=== PATIENT | male | born 1955 | race Caucasian/White ===

== ENCOUNTER 2017-10-05 20:14 | Emergency (ER) | payer OTHER ==
--- OUTSIDE RECORDS SUMMARY | 2017-10-05 21:03 | XMS REPORT ---
:1955 External Reference #:[id number] Author Organization [facility] Address [address] [place] [address] Phone [phone] Care Team Providers Name Role Phone Brittany Correa MD Care Team Information [employer]ist Unavailable Brittany Correa MD Primary Care Physician Unavailable Payers Type Date Identification Numbers Payment Provider Subscriber Health Maintenance Policy Number: Jose Luis Lobo [facility] [place] [id number] [employer] Number: [id number] [id number] PayID: [id number] [place] [address] Problems Date Description Provider Status Onset: 04/25/2011 Disorder of external ear Brittany Correa M.D. Active Onset: 04/25/2011 Verruca vulgaris Brittany Correa M.D. Active Onset: 04/25/2011 Eruption Brittany Correa M.D. Active Onset: 04/25/2012 Pure hypercholesterolemia Brittany Correa M.D. Active Onset: 09/13/2012 Plantar fascial fibromatosis Mesfin Daniel M.D. Active Onset: 09/13/2012 Palpitations Mesfin Daniel M.D. Active Onset: 08/14/2013 Wrist joint pain Brittany Correa M.D. Active Onset: 08/14/2013 Ganglion of tendon sheath Brittany Correa M.D. Active Onset: 10/21/2014 Enthesopathy Brittany Correa M.D. 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 1 by Nasreen, 01/17/ mouth daily M.D. 2016 x 4 Prednisone 10/10/ Hx Tablets 20mg 11tab 2 by mouth J18.8 Maryann Torre 2016 s every day x Nasreen, 10/05/ 3 days then M.D. 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 2012 Cipro 04/25/ Hx Tablets 500 20tab 1 po bid for Brittany Flanagan 2010 - s 10days Sunny, 09/27/ M.D. 2012 Doxycycline 12/15/ Hx Tablets 100mg 42tab 1 po bid x Maryann Platt 2010 - s 21 days Nasreen, 04/25/ M.D. 2010 Azithromycin 11/11/ Hx Tablets 500mg 10tab 1 po daily x 784.2 Maryann Torre 2010 - s 10. Nasreen, 04/25/ M.D. 2011 Ventolin HFA 06/18/ Hx Aers 108(90Base 2unit take 2 Brittany Flanagan 2009 - ) mcg/ac s inhalations Breiman, 04/25/ by mouth M.D. 2010 every 4 hours if needed cough or wheezing Zithromax 06/12/ Hx Tablets 250mg 6Tabs 2 po qd Brittany Flanagan 2009 - today , then Breiman, po qd M.D. 2009 times 4 Doxycycline 12/17/ Hx Caps DR 100mg 28cap 1 po bid E906.4 Guzman Hyclate 2009 - Part s AMelinda Wasserman, 06/12/ M.D. 2009 Doxycycline 12/10/ Hx Capsules 100mg 20cap 1 po bid 788.1 Karen Hyclate 2008 - s Kim, 12/17/ Afnp-C 2008 Zithromax 05/03/ Hx Tablets 250mg 6Tabs 2 po qd Brittany Flanagan 2007 - , then Breiman, po qd M.D. 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 2012 Daily Lipitor 08/08/ Hx 10mg 20uni one qd Maurice Flanagan 2000 - ts nAnika, 12/30/ M.D. 2003 Proventil HFA 12/16/ Hx 1unit 2 puffs q4h Brittany Flanagan 1999 - s prn for Breiman, 07/28/ cough/wheeze M.D. 2009 Keflex 07/28/ Hx 5Oomg 20uni 1 PO bid La 1999 - ts Lachelle, 08/07/ Afnp-C 1999 Keflex 06/11/ Hx Tabs 5Oomg 20tab 1 PO bid Cora 1998 - s Cammie, 06/21/ REPAIRER PUMP-F 1998 Z-Pack 06/10/ Hx 1unit as Directed Karen 1998 - s Kim, 06/11/ Afnp-C 1999 Lescol 08/15/ Hx 20mg. 30uni 1 PO QHS Brittany Flanagan 1997 - eleni Correa, 05/30/ Tatyana 2002 Verrumal / Hx Use as Unknown 0000 - Directed 2011 Immunizations CPT Code Status Date Vaccine Reaction Lot # [id number] Given 04/06/2017 Influenza Vac, Quadrivalent, [id number] [address] Given 03/10/2016 Influenza Vac, Quadrivalent, [id number] [place] [address] Given 03/17/2014 DO Not Use Split Influenza [id number] Virus Vaccine 04700 Given 03/11/2013 DO Not Use Split Influenza [id number] Virus Vaccine 86318 Given 02/07/2012 DO Not Use Split Influenza no reaction noted [id number] Virus Vaccine 83906 Given 04/25/2011 DO Not Use Split Influenza [id number] Virus Vaccine 54900 Given 06/04/2009 DO Not Use Split Influenza Virus Vaccine 12807 Given 05/07/2009 H1N1 Virus Vaccine [id number] 38587 Given 05/07/2009 H1N1 Immunization Intramuscular/Intranasal W Counseling 09510 Given 05/03/2008 DO Not Use Split Influenza [id number] Virus Vaccine 50316 Given 03/17/2007 Tdap Tetanus, W Pertussis [id number] 95888 Given 03/17/2007 DO Not Use Split Influenza [id number] Virus Vaccine 06670 Given 04/08/2005 DO Not Use Split Influenza Virus Vaccine Vital Signs Date Vital Result Comment 10/05/2017 BP Systolic 136 mmHg BP Diastolic 84 mmHg Heart Rate 88 /min Body Temperature 101.7 F Respiratory Rate 16 /min Weight 186.00 lb 05/23/2017 BP Systolic 122 mmHg BP Diastolic 60 mmHg Heart Rate 64 /min Body Temperature 98.3 F Respiratory Rate 16 /min Weight 183.50 lb 01/17/2017 BP Systolic 110 mmHg BP Diastolic 80 mmHg Heart Rate 76 /min Body Temperature 98.1 F Respiratory Rate 18 /min Weight 185.00 lb 10/10/2016 BP Systolic 126 mmHg BP Diastolic 76 mmHg Heart Rate 78 /min Body Temperature 100.8 F Respiratory Rate 16 /min Height 67 inches 5'7" Weight 182.38 lb BMI (Body Mass Index) 28.6 kg/m2 05/09/2016 BP Systolic 132 mmHg BP Diastolic 80 mmHg Heart Rate 60 /min Body Temperature 97.9 F Respiratory Rate 16 /min Height 67 inches 5'7" Weight 189.00 lb BMI (Body Mass Index) 29.6 kg/m2 03/01/2016 BP Systolic 128 mmHg BP Diastolic 84 mmHg Heart Rate 60 /min Body Temperature 98.1 F Respiratory Rate 16 /min Height 67 inches 5'7" Weight 187.38 lb BMI (Body Mass Index) 29.3 kg/m2 11/05/2015 BP Systolic 126 mmHg BP Diastolic 80 mmHg Heart Rate 62 /min Body Temperature 100.0 F Respiratory Rate 18 /min Height 67 inches 5'7" Weight 184.00 lb BMI (Body Mass Index) 28.8 kg/m2 10/21/2014 BP Systolic 130 mmHg BP Diastolic 72 mmHg Heart Rate 60 /min Body Temperature 97.8 F Respiratory Rate 18 /min Height 67 inches 5'7" Weight 190.00 lb BMI (Body Mass Index) 29.8 kg/m2 06/16/2014 BP Systolic 120 mmHg BP Diastolic 80 mmHg Heart Rate 72 /min Body Temperature 98.8 F Respiratory Rate 18 /min Height 67 inches 5'7" Weight 192.00 lb BMI (Body Mass Index) 30.1 kg/m2 11/18/2013 BP Systolic 122 mmHg BP Diastolic 74 mmHg Heart Rate 62 /min Body Temperature 98.6 F Respiratory Rate 18 /min Height 67 inches 5'7" Weight 180.00 lb BMI (Body Mass Index) 28.2 kg/m2 08/14/2013 BP Systolic 120 mmHg BP Diastolic 74 mmHg Heart Rate 58 /min Body Temperature 97.2 F Respiratory Rate 18 /min Height 68 inches 5'8" Weight 182.00 lb BMI (Body Mass Index) 27.7 kg/m2 03/11/2013 BP Systolic 128 mmHg BP Diastolic 82 mmHg Heart Rate 80 /min Body Temperature 99.7 F Respiratory Rate 18 /min Height 68 inches 5'8" Weight 181.00 lb BMI (Body Mass Index) 27.5 kg/m2 09/13/2012 BP Systolic 108 mmHg BP Diastolic 74 mmHg Heart Rate 78 /min Body Temperature 97.8 F Respiratory Rate 15 /min Height 68 inches 5'8" Weight 182.00 lb BMI (Body Mass Index) 27.7 kg/m2 04/25/2012 BP Systolic 118 mmHg BP Diastolic 80 mmHg Heart Rate 60 /min Body Temperature 98.3 F Height 68 inches 5'8" Weight 185.00 lb BMI (Body Mass Index) 28.1 kg/m2 03/26/2012 BP Systolic 120 mmHg BP Diastolic 64 mmHg Heart Rate 78 /min Body Temperature 98.9 F Height 68 inches 5'8" Weight 182.00 lb BMI (Body Mass Index) 27.7 kg/m2 02/07/2012 BP Systolic 120 mmHg BP Diastolic 84 mmHg Heart Rate 88 /min Height 68 inches 5'8" Weight 179.00 lb BMI (Body Mass Index) 27.2 kg/m2 11/01/2011 BP Systolic 118 mmHg BP Diastolic 78 mmHg Heart Rate 84 /min Body Temperature 99.6 F O2 % BldC Oximetry 97 % Height 68 inches 5'8" Weight 178.00 lb BMI (Body Mass Index) 27.1 kg/m2 09/28/2011 BP Systolic 108 mmHg Left Arm BP Diastolic 62 mmHg Left Arm BP Systolic Recheck 122 mmHg Right Arm BP Diastolic Recheck 84 mmHg Right Arm Heart Rate 66 /min Height 68 inches 5'8" Weight 177.00 lb BMI (Body Mass Index) 26.9 kg/m2 04/25/2011 BP Systolic 110 mmHg BP Diastolic 70 mmHg Heart Rate 72 /min Respiratory Rate 14 /min Height 68 inches 5'8" Weight 181.00 lb BMI (Body Mass Index) 27.5 kg/m2 11/18/2010 BP Systolic 110 mmHg BP Diastolic 78 mmHg Heart Rate 88 /min Body Temperature 99.0 F Height 68 inches 5'8" Weight 178.00 lb BMI (Body Mass Index) 27.1 kg/m2 11/11/2010 BP Systolic 110 mmHg BP Diastolic 80 mmHg Heart Rate 84 /min Body Temperature 99.8 F Height 68 inches 5'8" Weight 178.00 lb BMI (Body Mass Index) 27.1 kg/m2 06/11/2010 BP Systolic 112 mmHg BP Diastolic 72 mmHg Heart Rate 68 /min Body Temperature 98.4 F Height 68 inches 5'8" Weight 183.00 lb BMI (Body Mass Index) 27.8 kg/m2 06/01/2010 BP Systolic 122 mmHg BP Diastolic 78 mmHg Heart Rate 68 /min Height 68 inches 5'8" Weight 182.00 lb BMI (Body Mass Index) 27.7 kg/m2 04/07/2010 BP Systolic 116 mmHg BP Diastolic 70 mmHg Heart Rate 72 /min Height 68 inches 5'8" Weight 180.00 lb BMI (Body Mass Index) 27.4 kg/m2 03/26/2010 BP Systolic 120 mmHg BP Diastolic 80 mmHg Heart Rate 72 /min Height 68 inches 5'8" Weight 180.00 lb BMI (Body Mass Index) 27.4 kg/m2 07/28/2009 BP Systolic 150 mmHg BP Diastolic 60 mmHg Heart Rate 72 /min Respiratory Rate 18 /min Weight 180.00 lb 06/12/2009 BP Systolic 120 mmHg BP Diastolic 80 mmHg Heart Rate 72 /min Body Temperature 98.5 F Respiratory Rate 16 /min O2 % BldC Oximetry 98 % Weight 181.00 lb 03/30/2009 BP Systolic 120 mmHg BP Diastolic 80 mmHg Heart Rate 78 /min Height 58 inches 0'5" Weight 175.00 lb BMI (Body Mass Index) 4921.0 kg/m2 12/17/2008 BP Systolic 112 mmHg BP Diastolic 80 mmHg Heart Rate 78 /min Body Temperature 99.4 F Height 69 inches 5'9" Weight 179.00 lb BMI (Body Mass Index) 26.4 kg/m2 12/10/2008 BP Systolic 114 mmHg BP Diastolic 64 mmHg Heart Rate 64 /min Body Temperature 99.1 F Height 69 inches 5'9" Weight 180.00 lb BMI (Body Mass Index) 26.6 kg/m2 09/10/2008 BP Systolic 118 mmHg BP Diastolic 82 mmHg Heart Rate 64 /min Body Temperature 101.1 F 05/27/2008 BP Systolic 100 mmHg BP Diastolic 80 mmHg Heart Rate 64 /min Body Temperature 98.8 F Height 69 inches 5'9" Weight 181.00 lb BMI (Body Mass Index) 26.7 kg/m2 05/03/2008 BP Systolic 100 mmHg BP Diastolic 70 mmHg Heart Rate 60 /min Body Temperature 98.6 F Height 69 inches 5'9" Weight 174.00 lb BMI (Body Mass Index) 25.7 kg/m2 10/30/2007 BP Systolic 108 mmHg BP Diastolic 70 mmHg Heart Rate 60 /min Height 69 inches 5'9" Weight 174.00 lb BMI (Body Mass Index) 25.7 kg/m2 07/27/2007 BP Systolic 118 mmHg BP Diastolic 70 mmHg Heart Rate 60 /min Height 69 inches 5'9" Weight 176.00 lb BMI (Body Mass Index) 26.0 kg/m2 03/21/2007 BP Systolic 120 mmHg BP Diastolic 70 mmHg Heart Rate 72 /min Body Temperature 99.1 F Respiratory Rate 16 /min Height 69 inches 5'9" Weight 168.00 lb BMI (Body Mass Index) 24.8 kg/m2 03/17/2007 BP Systolic 110 mmHg BP Diastolic 80 mmHg Heart Rate 64 /min Body Temperature 98.8 F Height 69 inches 5'9" Weight 168.00 lb BMI (Body Mass Index) 24.8 kg/m2 01/17/2007 BP Systolic 110 mmHg BP Diastolic 74 mmHg Heart Rate 68 /min Body Temperature 98.1 F Height 69 inches 5'9" Weight 163.00 lb BMI (Body Mass Index) 24.1 kg/m2 05/27/2006 BP Systolic 120 mmHg BP Diastolic 78 mmHg Body Temperature 99.0 F Height 69 inches 5'9" 09/06/2005 BP Systolic 112 mmHg BP Diastolic 70 mmHg Heart Rate 60 /min Height 69 inches 5'9" Weight 182.00 lb BMI (Body Mass Index) 26.9 kg/m2 12/31/2003 BP Systolic 124 mmHg BP Diastolic 74 mmHg Heart Rate 60 /min Height 69 inches 5'9" Weight 169.00 lb BMI (Body Mass Index) 25.0 kg/m2 03/08/2003 BP Systolic 100 mmHg BP Diastolic 70 mmHg Heart Rate 68 /min Body Temperature 97.4 F Height 69 inches 5'9" Weight 174.00 lb BMI (Body Mass Index) 25.7 kg/m2 05/30/2002 BP Systolic 100 mmHg BP Diastolic 70 mmHg Heart Rate 68 /min Height 69 inches 5'9" Weight 170.00 lb BMI (Body Mass Index) 25.1 kg/m2 12/21/1999 BP Systolic 120 mmHg BP Diastolic 74 mmHg Heart Rate 84 /min Height 69 inches 5'9" Weight 174.00 lb BMI (Body Mass Index) 25.7 kg/m2 07/24/1999 Body Temperature 98.9 F Weight 168.00 lb 01/30/1999 Body Temperature 99.0 F 12/04/1998 BP Systolic 112 mmHg BP Diastolic 80 mmHg Weight 170.00 lb 06/08/1998 Body Temperature 99.3 F Weight 173.00 lb 04/20/1998 BP Systolic 108 mmHg BP Diastolic 70 mmHg Body Temperature 97.3 F Weight 166.00 lb 08/15/1997 BP Systolic 122 mmHg BP Diastolic 80 mmHg Height 69 inches 5'9" Weight 161.50 lb Results Test Date Test Result H/L Range Note Laboratory test finding 05/09/2016 HCV Antibody 0.2 s/coratio 0.0-0.9 1 , 2 Comprehensive Metabolic Prof 05/09/2016 Sodium 142 mEq/L 134-149 Potassium 4.3 mEq/L 3.6-5.5 Chloride 102 mEq/L 94-112 Carbon Dioxide 26 mEq/L 21-32 Glucose 89 mg/dL 70-105 BUN 16 mg/dL 6-26 Creatinine 0.9 mg/dL 0.6-1.4 BUN/Creat Ratio 17.8 CALC 8.0-36.0 Calcium 9.3 mg/dL 8.6-10.2 Total Protein 7.0 g/dL 6.4-8.3 Albumin 4.2 g/dL 3.8-5.5 Globulin 2.8 g/dL 2.0-4.8 A/G Ratio 1.5 CALC 0.6-2.3 Alk. Phosphatase 70 U/L 22-95 Alt (SGPT) 22 U/L 7-35 Ast (Sgot) 23 U/L 5-34 Total Bilirubin 0.8 mg/dL 0.2-1.3 GFR Non- >60 ml/min/1.73m^ >=60 GFR >60 ml/min/1.73m^ >=60 Lipid Profile 05/09/2016 Cholesterol 209 mg/dL High 120-200 Triglycerides 111 mg/dL 30-200 HDL Cholesterol 47 mg/dL 30-70 LDL (Calculated) 140 CALC High 0-129 VLDL Cholesterol 22 mg/dL 0-50 HDL Risk Factor 4.4 CALC 0.0-4.4 Complete Blood Count 05/09/2016 WBC 5.8 x10^3/UL 3.6-9.6 RBC 4.87 x10^6/UL 3.90-5.70 HGB 14.8 g/dL 12.1-17.2 HCT 44 % 36-50 MCV 90.0 fL 82.2-97.4 MCH 30.4 pg 27.6-33.3 MCHC 33.9 g/dL 33.0-35.5 RDW 14.7 % High 11.6-13.7 PLT 320 x10^3/UL 150-400 MPV 7.0 fL Low 7.4-10.4 Gran # 3.7 x10^3/UL 1.5-7.2 Lymph# 1.9 x10^3/UL 0.7-4.9 Mccormick# 0.2 x10^3/UL 0.1-0.9 Gran % 61.7 % 42.2-75.2 Lymph % 33.4 % 20.5-51.1 Mccormick% 4.9 % 1.7-9.3 Laboratory test finding 05/09/2016 PSA 1.9 ng/mL 0.0-4.0 Ua - Non Micro (Fma) 05/09/2016 Appearance clear Color yellow Glucose, Urine (Fma/CMC/CTX) neg Bilirubin neg Ketones neg SP Grav 1.025 Blood neg PH 5.5 Protein neg Urobil 0.2 Nitrite neg Leukocytes (Fma/CMC/Centrex) neg Laboratory test finding 03/01/2016 Quickstrep negative Negative Laboratory test finding 11/05/2015 Quickstrep neg Negative Istat BUN/Crea/Egfr/V Eastct 11/05/2015 Poc Bun Eastct 17 mg/dL 9-18 Poc Crea Eastct 1.0 mg/dL High 0.6-0.9 GFR Non- Ect 76.7 >60 GFR Eastct 98.7 >60 3 CBC Electronic-ALL Lab 11/05/2015 White Blood Count 11.5 10^3/uL High 3.5- 10.8 Compani Red Blood Count 5.00 10^6/uL 4.0-5.4 Hemoglobin 14.5 g/dL 14.0-18.0 Hematocrit 44 % 42-52 Mean Corpuscular Volume 88 fL 80-94 Mean Corpuscular Hemoglobin 29 pg 27-31 Mean Corpuscular HGB Conc 33 g/dL 31-36 Red Cell Distribution Width 13 % 10.5-15 Platelet Count 267 10^3/uL 150-450 Mean Platelet Volume 9 um3 7.4-10.4 Abs Neutrophils 8.4 10^3/uL High 1.5-7.7 Abs Lymphocytes 1.9 10^3/uL 1.0-4.8 Abs Monocytes 0.9 10^3/uL High 0-0.8 Abs Eosinophils 0.2 10^3/uL 0-0.6 Abs Basophils 0.1 10^3/uL 0-0.2 Abs Nucleated RBC 0.02 10^3/uL Granulocyte % 72.8 % 38-83 Lymphocyte % 16.9 % Low 25-47 Monocyte % 7.6 % 1-9 Eosinophil % 2.2 % 0-6 Basophil % 0.5 % 0-2 Nucleated Red Blood Cells % 0.1 Laboratory test finding 11/05/2015 Blood Culture SEE RESULT BELOW 4 Monospot Negative Negative Comp Metabolic-ALL Lab Compani 11/05/2015 Sodium 137 mmol/L 133-145 Potassium 4.4 mmol/L 3.5-5.0 Chloride 101 mmol/L 101-111 Co2 Carbon Dioxide 27 mmol/L 22-32 Anion Gap 9 mmol/L 2-11 Glucose 82 mg/dL 70-100 Blood Urea Nitrogen 16 mg/dL 6-24 Creatinine 1.00 mg/dL 0.67-1.17 BUN/Creatinine Ratio 16.0 8-20 Calcium 9.4 mg/dL 8.6-10.3 Total Protein 7.4 g/dL 6.4-8.9 Albumin 4.3 g/dL 3.2-5.2 Globulin 3.1 g/dL 2-4 Albumin/Globulin Ratio 1.4 1-3 Total Bilirubin 0.70 mg/dL 0.2-1.0 Alkaline Phosphatase 69 U/L 34-104 Alt 14 U/L 7-52 Ast 19 U/L 13-39 Egfr Non- 76.7 >60 Egfr 98.7 >60 5 Laboratory test finding 06/16/2014 Quickstrep negative Negative Throat - Beta Strep Fma NEG@48HRS CBC Electronic (Fma) 11/18/2013 WBC 5.7 3.6-9.6 RBC 5.07 3.90-5.70 Hemoglobin (Fma/CMC/CTX) 15.4 g/dL 12.1 - 17.2 Hematocrit (Fma/CMC/CTX) 46.5 % 36.1 - 50.3 Platelets 232 10^3/ul 150-400 Lymph% 40.3 % 17.0-48.0 Mixed% 4.1 Neutrophils % 55.6 Mean Corpuscular Vol 92 82.2-97.4 Mean Corpuscular Hemoglobin 30.3 27.6-33.3 Mean Corpuscular Hemo Concen 33.1 32.0-36.0 RDW 13.4 11.6-13.7 Mean Platelet Volume 7.2 5.5-11.0 Ua - Non Micro (a) 11/18/2013 Appearance CLEAR Color YELLOW Glucose, Urine (Fma/CMC/CTX) NEG Bilirubin NEG Ketones NEG SP Grav 1.025 Blood NEG PH 6.5 Protein NEG Urobil 0.2 Nitrite NEG Leukocytes (Fma/CMC/Centrex) NEG Comprehensive Metabolic Prof 11/18/2013 Sodium 148 mEq/L 134-149 Potassium 4.5 mEq/L 3.6-5.5 Chloride 104 mEq/L 94-112 Carbon Dioxide 23 mEq/L 21-32 Glucose 86 mg/dL 70-105 BUN 18 mg/dL 6-26 Creatinine 1.2 mg/dL 0.6-1.4 BUN/Creat Ratio 15.0 CALC 8.0-36.0 Calcium 9.8 mg/dL 8.6-10.2 Total Protein 7.9 g/dL 6.3-8.1 Albumin 4.6 g/dL 3.8-5.5 Globulin 3.3 g/dL 2.0-4.8 A/G Ratio 1.4 CALC 0.6-2.3 Alk. Phosphatase 72 U/L 22-95 Alt (SGPT) 22 U/L 7-35 Ast (Sgot) 13 U/L 5-34 Total Bilirubin 0.8 mg/dL 0.2-1.3 Laboratory test finding 11/18/2013 PSA 1.8 ng/mL 0.0-4.0 6 Lipid Profile 11/18/2013 Cholesterol 205 mg/dL High 120-200 Triglycerides 114 mg/dL 30-200 HDL Cholesterol 42 mg/dL 30-70 LDL (Calculated) 140 CALC High 0-129 VLDL Cholesterol 23 mg/dL 0-50 HDL Risk Factor 4.9 CALC High 0.0-4.4 CBC Electronic (a) 04/25/2012 WBC 6.0 3.6-9.6 RBC 4.92 3.90-5.70 Hemoglobin (Fma/CMC/CTX) 15.2 g/dL 12.1 - 17.2 Hematocrit (Fma/CMC/CTX) 45.5 % 36.1 - 50.3 Platelets 243 10^3/ul 150-400 Lymph% 38.6 20.5-51.1 Mixed% 5.8 Neutrophils % 55.6 Mean Corpuscular Vol 93 82.2-97.4 Mean Corpuscular Hemoglobin 30.9 27.6-33.3 Mean Corpuscular Hemo Concen 33.3 32.0-36.0 RDW 14.1 High 11.6-13.7 Mean Platelet Volume 7.6 6.5-11.0 Ua - Non Micro (Fma) 04/25/2012 Appearance CLEAR Color YELLOW Glucose, Urine (Fma/CMC/CTX) NEG Bilirubin NEG Ketones NEG SP Grav 1.025 Blood NEG PH 6.5 Protein NEG Urobil 0.2 Nitrite NEG Leukocytes (Fma/CMC/Centrex) NEG Comprehensive Metabolic Prof 04/25/2012 Albumin 4.7 g/dL 3.8-5.5 Alk. Phos. 73 U/L 22-95 Alt (SGPT) 30 U/L 10-40 Ast (Sgot) 29 U/L 5-34 BUN 19 mg/dL 6-26 Calcium 9.3 mg/dL 8.6-10.2 Chloride 104 mEq/L 94-112 Creatinine 1.0 mg/dL 0.6-1.4 Carbon Dioxide 27 mEq/L 21-32 Glucose 88 mg/dL 70-105 Sodium 140 mEq/L 134-149 Total Bilirubin 0.7 mg/dL 0.2-1.3 Total Protein 7.0 g/dL 6.3-8.1 Potassium 4.2 mEq/L 3.6-5.5 Globulin 2.3 g/dL 2.0-4.8 A/G Ratio 2.0 Calc 0.6-2.2 BUN/Creat Ratio 18.3 Calc 8.0-36.0 Laboratory test finding 04/25/2012 PSA 2.10 ng/mL 0.00-4.00 Lipid Profile 04/25/2012 Cholesterol 215 mg/dL High 120-200 HDL 48 mg/dL 30-70 Triglycerides 126 mg/dL 30-200 HDL Risk Factor 4.4 CALC 0.0-4.4 LDL (Calculated) 142 CALC High 0-129 VLDL (Calculated) 25 mg/dL 0-50 Laboratory test finding 03/26/2012 Throat - Beta Strep Fma NEG@48HRS CBC Electronic (Fma) 11/18/2010 WBC 8.5 3.6-9.6 RBC 4.95 3.90-5.70 Hemoglobin (Fma/CMC/CTX) 15.0 g/dL 12.1 - 17.2 Hematocrit (Fma/CMC/CTX) 44.3 % 36.1 - 50.3 Platelets 301 10^3/ul 150-400 Lymph% 19.8 Low 20.5-51.1 Mixed% 6.0 Neutrophils % 74.2 Mean Corpuscular Vol 89 82.2-97.4 Mean Corpuscular Hemoglobin 30.3 27.6-33.3 Mean Corpuscular Hemo Concen 33.9 32.0-36.0 RDW 12.0 11.6-13.7 Mean Platelet Volume 7.3 6.5-11.0 Lyme Western Blot Ser 11/18/2010 IgG P93 Ab. Absent IgG P66 Ab. Absent IgG P58 Ab. Absent IgG P45 Ab. Absent IgG P41 Ab. Absent IgG P39 Ab. Absent IgG P30 Ab. Absent IgG P28 Ab. Absent IgG P23 Ab. Absent IgG P18 Ab. Absent Lyme IgG WB Interp. Negative 7 IgM P41 Ab. Absent IgM P39 Ab. Absent IgM P23 Ab. Absent Lyme IgM WB Interp. Negative 8 HSV Igm I/II 11/18/2010 HSV, IgM I/II <0.91 Ratio 0.00-0.90 9 Combination Combination Laboratory test 11/18/2010 Herpes Culture With No herpes simple 10 finding Typing <SEE NOTE> Throat Culture Normal pharyngea <SEE NOTE> 11 Lyme Igg/M W/RFX West 11/18/2010 Lyme IgG/IgM Ab 1.11 index High 0.00- 0.90 12 Lyme Ab Interp.,Eia Positive Lyme Disease Ab, Quant, IgM 1.29 index High 0.00-0.90 13 Lyme Ab IgM Interp., Eia Positive HSV 1+2-Specific AB, Igg. 11/18/2010 HSV 1 IgG, Type <0.91 index 0.00- 0.90 14 Spec HSV 2 IgG, Type Spec <0.91 index 0.00-0.90 15 Comprehensive Metabolic Prof 11/11/2010 Albumin 4.7 g/dL 3.8-5.5 Alk. Phos. 83 U/L 22-95 Alt (SGPT) 20 U/L 10-40 Ast (Sgot) 23 U/L 5-34 BUN 20 mg/dL 6-26 Calcium 10.0 mg/dL 8.6-10.2 Chloride 100 mEq/L 94-112 Creatinine 1.0 mg/dL 0.6-1.4 Carbon Dioxide 26 mEq/L 21-32 Glucose 100 mg/dL 70-105 Sodium 140 mEq/L 134-149 Total Bilirubin 0.9 mg/dL 0.2-1.3 Total Protein 7.0 g/dL 6.3-8.1 Potassium 4.6 mEq/L 3.6-5.5 Globulin 2.2 g/dL 2.0-4.8 A/G Ratio 2.1 Calc 0.6-2.2 BUN/Creat Ratio 19.6 Calc 8.0-36.0 CBC Electronic (a) 11/11/2010 WBC 8.3 3.6-9.6 RBC 5.08 3.90-5.70 Hemoglobin (Fma/CMC/CTX) 15.2 g/dL 12.1 - 17.2 Hematocrit (Fma/CMC/CTX) 45.6 % 36.1 - 50.3 Platelets 247 10^3/ul 150-400 Lymph% 16.6 Low 20.5-51.1 Mixed% 4.8 Neutrophils % 78.6 Mean Corpuscular Vol 90 82.2-97.4 Mean Corpuscular Hemoglobin 30.0 27.6-33.3 Mean Corpuscular Hemo Concen 33.4 32.0-36.0 RDW 12.7 11.6-13.7 Mean Platelet Volume 7.8 6.5-11.0 Lipid Profile 08/03/2010 Cholesterol 205 mg/dL High 120-200 HDL 44 mg/dL 30-70 Triglycerides 147 mg/dL 30-200 HDL Risk Factor 4.7 CALC High 0.0-4.0 LDL (Calculated) 132 CALC High 0-129 VLDL (Calculated) 29 mg/dL 0-50 Laboratory test finding 06/11/2010 Quickstrep NEGATIVE Negative Throat - Beta Strep Fma NEGATIVE Negative Ua - Non Micro ([facility]) 06/01/2010 Appearance CLEAR Color YELLOW Glucose NEG Bilirubin NEG Ketones NEG SP Grav 1.025 Blood NEG PH 6.5 Protein NEG Urobil 0.2 Nitrite NEG Leukocytes (Fma/CMC/Centrex) NEG Comprehensive Metabolic Prof 04/09/2010 Albumin 4.4 g/dL 3.8-5.5 Alk. Phos. 67 U/L 22-95 Alt (SGPT) 28 U/L 10-40 Ast (Sgot) 25 U/L 5-34 BUN 20 mg/dL 6-26 Calcium 9.3 mg/dL 8.6-10.2 Chloride 106 mEq/L 94-112 Creatinine 1.0 mg/dL 0.6-1.4 Carbon Dioxide 25 mEq/L 21-32 Glucose 100 mg/dL 70-105 Sodium 144 mEq/L 134-149 Total Bilirubin 0.6 mg/dL 0.2-1.3 Total Protein 7.3 g/dL 6.3-8.1 Potassium 4.4 mEq/L 3.6-5.5 Globulin 2.9 g/dL 2.0-4.8 A/G Ratio 1.5 Calc 0.6-2.2 BUN/Creat Ratio 20.4 Calc 8.0-36.0 Lipid Profile 04/09/2010 Cholesterol 218 mg/dL High 120-200 HDL 49 mg/dL 30-70 Triglycerides 102 mg/dL 30-200 HDL Risk Factor 4.5 CALC 4.2-7.0 LDL (Calculated) 149 CALC High 0-129 VLDL (Calculated) 20 mg/dL 0-50 Laboratory test finding 04/09/2010 PSA 1.80 ng/mL 0.00-4.00 CBC ([facility]ma) 04/09/2010 WBC 5.4 3.6-9.6 RBC 5.08 3.90-5.70 Hemoglobin ([facility]ma/CMC/CTX) 15.5 g/dL 12.1 - 17.2 Hematocrit ([facility]ma/CMC/CTX) 46.5 % 36.1 - 50.3 Platelets 268 10^3/ul 150-400 Lymph% 33.1 20.5-51.1 Mixed% 5.5 Neutrophils % 61.4 Mean Corpuscular Vol 92 82.2-97.4 Mean Corpuscular Hemoglobin 30.5 27.6-33.3 Mean Corpuscular Hemo Concen 33.3 33.0-36.0 RDW 11.8 11.6-13.7 Mean Platelet Volume 7.9 7.4-10.4 Laboratory test finding 03/26/2010 Surgical Pathology SEE NOTE 16 Complete Blood Count 03/30/2009 WBC 5.6 x10^3/uL 3.6-9.6 17 Gran# 3.5 x10^3/uL 1.5-7.2 17 Gran% 63.1 % 42.2-75.2 17 HCT 45 % 36-50 17 HGB 15.3 g/dL 12.1-17.2 17 Lymph# 1.8 x10^3/uL 0.7-4.9 17 Lymph% 32.7 % 20.5-51.1 17 MCH 31.0 pg 27.6-33.3 17 MCV 89.9 fL 82.2-97.4 17 MCHC 34.5 g/dL 33.0-35.5 17 Mo# 0.2 x10^3/uL 0.1-0.9 17 Mo% 4.2 % 1.7-9.3 17 MPV 8.2 fL 7.4-10.4 17 PLT 230 x10^3/uL 150-400 17 RBC 4.95 x10^6/uL 3.90-5.70 17 RDW 12.8 % 11.6-13.7 17 Laboratory test finding 03/30/2009 PSA 1.70 ng/mL 0.00-4.00 17 Ua - Non Micro (a) 03/30/2009 Appearance CLEAR Color YELLOW Glucose, Urine (a/[facility]CTX) NEG Bilirubin NEG Ketones NEG SP Grav 1.015 Blood NEG PH 8.5 Protein NEG Urobil 0.2 Nitrite NEG Leukocytes (a/[facility]) NEG Comprehensive Metabolic Prof 03/30/2009 Albumin 4.5 g/dL 3.8-5.5 17 Alk. Phos. 68 U/L 22-95 17 Alt (SGPT) 31 U/L 10-40 17 Ast (Sgot) 31 U/L 5-34 17 BUN 16 mg/dL 6-26 17 Calcium 9.5 mg/dL 8.6-10.2 17 Chloride 104 mEq/L 94-112 17 Creatinine 1.1 mg/dL 0.6-1.4 17 Carbon Dioxide 24 mEq/L 21-32 17 Glucose 84 mg/dL 70-105 17 Sodium 142 mEq/L 134-149 17 Total Bilirubin 0.7 mg/dL 0.2-1.3 17 Total Protein 7.2 g/dL 6.3-8.1 17 Potassium 4.3 mEq/L 3.6-5.5 17 Globulin 2.8 g/dL 2.0-4.8 17 A/G Ratio 1.6 Calc 0.6-2.2 17 BUN/Creat Ratio 14.2 Calc 8.0-36.0 17 Lipid Profile 03/30/2009 Cholesterol 189 mg/dL 120-200 17 HDL 38 mg/dL 30-70 17 Triglycerides 120 mg/dL 30-200 17 HDL Risk Factor 4.9 CALC 4.2-7.0 17 LDL (Calculated) 127 CALC 0-129 17 VLDL (Calculated) 24 mg/dL 0-50 17 Ua - Micro ([facility]ma) 12/10/2008 Appearance clear Color yellow Glucose neg Bilirubin neg Ketones trace SP Grav 1.025 Blood neg PH 6.0 Protein neg Urobil 0.2 Nitrite neg Leukocytes ([facility]) neg Hyaline - /Lpf Granular - /Lpf WBC ([facility]) 1-3 RBC 0-1 Mucus small amt /Lpf Epith rare /Lpf Bacteria rare /Hpf Amorphous - /Lpf Crystals, Fluid ([facility]/CTX) - Z#Comments - Laboratory test finding 05/27/2008 PSA 1.80 ng/mL 0.00-4.00 17 Comprehensive Metabolic Prof 05/27/2008 Albumin 4.0 g/dL 3.8-5.5 17 Alk. Phos. 62 U/L 22-95 17 Alt (SGPT) 27 U/L 10-40 17 Ast (Sgot) 33 U/L 5-34 17 BUN 19 mg/dL 6-26 17 Calcium 9.2 mg/dL 8.6-10.2 17 Chloride 100 mEq/L 94-112 17 Creatinine 1.0 mg/dL 0.6-1.4 17 Carbon Dioxide 24 mEq/L 21-32 17 Glucose 85 mg/dL 70-105 17 Sodium 138 mEq/L 134-149 17 Total Bilirubin 0.7 mg/dL 0.2-1.3 17 Total Protein 7.0 g/dL 6.3-8.1 17 Potassium 4.1 mEq/L 3.6-5.5 17 Globulin 3.0 g/dL 2.0-4.8 17 A/G Ratio 1.4 Calc 0.6-2.2 17 BUN/Creat Ratio 18.2 Calc 8.0-36.0 17 Lipid Profile 05/27/2008 Cholesterol 232 mg/dL High 120-200 17 HDL 39 mg/dL 30-70 17 Triglycerides 114 mg/dL 30-200 17 HDL Risk Factor 6.0 CALC 4.2-7.0 17 LDL (Calculated) 170 CALC High 0-129 17 VLDL (Calculated) 23 mg/dL 0-50 17 Ua - Non Micro ([facility]) 07/27/2007 Appearance CLEAR Color LT YELLOW Glucose, Urine ([facility]CTX) NEG Bilirubin NEG Ketones NEG SP Grav 1.025 Blood NEG PH 5.0 Protein NEG Urobil 0.2 Nitrite NEG Leukocytes ([facility]) NEG Comprehensive Metabolic Prof 07/19/2007 Albumin 4.3 g/dL 3.8-5.5 17 Alk. Phos. 54 U/L 22-95 17 Alt (SGPT) 20 U/L 10-40 17 Ast (Sgot) 23 U/L 5-34 17 BUN 21 mg/dL 6-26 17 Calcium 9.5 mg/dL 8.6-10.2 17 Chloride 101 mEq/L 94-112 17 Creatinine 1.3 mg/dL 0.6-1.4 17 Carbon Dioxide 26 mEq/L 21-32 17 Glucose 89 mg/dL 70-105 17 Sodium 140 mEq/L 134-149 17 Total Bilirubin 0.8 mg/dL 0.2-1.3 17 Total Protein 7.2 g/dL 6.3-8.1 17 Potassium 4.2 mEq/L 3.6-5.5 17 Globulin 2.9 g/dL 2.0-4.8 17 A/G Ratio 1.5 Calc 0.6-2.2 17 BUN/Creat Ratio 15.8 Calc 8.0-36.0 17 Lipid Profile 07/19/2007 Cholesterol 198 mg/dL 120-200 17 HDL 47 mg/dL 30-70 17 Triglycerides 86 mg/dL 30-200 17 HDL Risk Factor 4.2 CALC 4.2-7.0 17 LDL (Calculated) 134 CALC High 0-129 17 VLDL (Calculated) 17 mg/dL 0-50 17 Complete Blood Count 07/19/2007 WBC 4.8 x10^3/u 3.6-9.6 17 Gran# 2.7 x10^3/u 1.5-7.2 17 Gran% 56.5 % 42.2-75.2 17 HCT 46 % 36-50 17 HGB 16.1 g/dL 12.1-17.2 17 Lymph# 1.7 x10^3/u 0.7-4.9 17 Lymph% 36.2 % 20.5-51.1 17 MCH 31.8 pg 27.6-33.3 17 MCV 92.0 fL 82.2-97.4 17 MCHC 34.6 g/dL 33.0-35.5 17 Mo# 0.4 x10^3/u 0.1-0.9 17 Mo% 7.3 % 1.7-9.3 17 MPV 7.7 fL 7.4-10.4 17 PLT 256 x10^3/u 150-400 17 RBC 5.05 x10^6/u 3.90-5.70 17 RDW 12.8 % 11.6-13.7 17 Laboratory test finding 03/17/2007 Throat - Beta Strep [facility] NEGATIVE @ 48 HRS Ua - Non Micro ([facility]) 01/17/2007 Appearance CLEAR Color LT YELLOW Glucose, Urine (a/[facility]CTX) NEG Bilirubin NEG Ketones NEG SP Grav 1.015 Blood NEG PH 7.0 Protein NEG Urobil 0.2 Nitrite NEG Leukocytes (a/[facility]) NEG Complete Blood Count 01/17/2007 WBC 5.1 x10\\S\\3/uL 3.6-9.6 17 Gran# 3.2 x10\\S\\3/uL 1.5-7.2 17 Gran% 61.9 % 42.2-75.2 17 HCT 44 % 36-50 17 HGB 15.0 g/dL 12.1-17.2 17 Lymph# 1.6 x10\\S\\3/uL 0.7-4.9 17 Lymph% 32.0 % 20.5-51.1 17 MCH 31.9 pg 27.6-33.3 17 MCV 93.8 fL 82.2-97.4 17 MCHC 34.1 g/dL 33.0-35.5 17 Mo# 0.3 x10\\S\\3/uL 0.1-0.9 17 Mo% 6.1 % 1.7-9.3 17 MPV 7.9 fL 7.4-10.4 17 PLT 262 x10\\S\\3/uL 150-400 17 RBC 4.71 x10\\S\\6/uL 3.90-5.70 17 RDW 13.0 % 11.6-13.7 17 Comprehensive Metabolic Prof 01/17/2007 Albumin 4.1 g/dL 3.8-5.5 17 Alk. Phos. 68 U/L 22-95 17 Alt (SGPT) 19 U/L 10-40 17 Ast (Sgot) 21 U/L 5-34 17 BUN 19 mg/dL 6-26 17 Calcium 9.1 mg/dL 8.6-10.2 17 Chloride 100 mEq/L 94-112 17 Creatinine 0.9 mg/dL 0.6-1.4 17 Carbon Dioxide 31 mEq/L 21-32 17 Glucose 83 mg/dL 70-105 17 Sodium 141 mEq/L 134-149 17 Total Bilirubin 0.6 mg/dL 0.2-1.3 17 Total Protein 6.7 g/dL 6.3-8.1 17 Potassium 3.7 mEq/L 3.6-5.5 17 Globulin 2.6 g/dL 2.0-4.8 17 A/G Ratio 1.6 Calc 0.6-2.2 17 BUN/Creat Ratio 20.6 Calc 8.0-36.0 17 Lipid Profile 01/17/2007 Cholesterol 170 mg/dL 120-200 17 HDL 55 mg/dL 30-70 17 Triglycerides 70 mg/dL 30-200 17 HDL Risk Factor 3.1 CALC Low 4.2-7.0 17 LDL (Calculated) 101 CALC 0-129 17 VLDL (Calculated) 14 mg/dL 0-50 17 Laboratory test finding 01/17/2007 PSA 2.20 ng/mL 0.00-4.00 17 Liver Function Panel 07/04/2006 Albumin/Globulin Ratio 1.4 1-3 17 Albumin 4.1 GM/DL 3.6-5.4 17 Alkaline Phosphatase 62 U/L 39-117 17 Alt (SGPT) 26 U/L 17-63 17 Ast (Sgot) 28 U/L 12-42 17 Bilirubin Direct 0.1 mg/dL 0.1-0.5 17 Globulin 2.9 GM/DL 2-4 17 Indirect Bilirubin 1.0 mg/dL High 0.1-0.75 17 Bilirubin Total 1.1 mg/dL 0.4-1.5 17 Total Protein 7.0 GM/DL 6.2-8.1 17 Lipid Profile 07/04/2006 Cholesterol/HDL Ratio 4.80 AVERAGE 1-4.97 17 (Trig/Chol/HDL) Cholesterol 192 mg/dL Less Than 200 17, 18 Triglyceride 90 mg/dL 40-200 17 High Density Lipoprotein 40 mg/dL 40-60 17 Low Density Lipoprotein 134 mg/dL High Less Than 100 17, 19 Liver Function (a) 09/10/2005 Total Protein 7.3 g/dL 6.3-8.1 Albumin ([facility]) 4.3 3.8-5.5 A/G Ratio ([facility]) 1.4 0.6-2.2 Globulin 3.1 2.0-4.8 Alkaline Phosphatase (F/C/CTX) 60 U/L 30-110 Alt (SGPT) ([facility]) 22 10-40 Ast (Sgot) ([facility]) 22 U/mL 5-34 Bilirubin, Total 0.8 mg/dL 0.2-1.3 Bilirubin, Direct 0.2 mg/dL 0-0.6 Bilirubin, Indirect 0.59 ml/dl 0.10-1.0 Lipid Profile([facility]) 09/10/2005 Cholesterol 211 mg/dL High 120-200 Male ([facility]) Triglyceride 83 mg/dL 30-200 HDL Cholesterol ([facility]) Male 35 mg/dL 30-70 LDL, Calculated ([facility]) 158 CALC High 0-129 LDL Direct ([facility]) - mg/dL 0-130 VLDL 17 0-50 HDL Risk Factor ([facility]) 5.9 CALC 4.2-7.0 Laboratory test finding 09/10/2005 Creatine Kin, Total 225 U/L High 38- 174 20 (F/C/CTX) Liver Function ([facility]) 08/17/2004 Total Protein 7.1 g/dL 6.3-8.1 Albumin ([facility]) 4.4 3.8-5.5 A/G Ratio ([facility]) 1.6 0.6-2.2 Globulin 2.7 2.0-4.8 Alkaline Phosphatase (F/C/CTX) 60 U/L 30-110 Alt (SGPT) ([facility]) 21 10-40 Ast (Sgot) ([facility]) 25 U/mL 5-34 Bilirubin, Total 0.8 mg/dL 0.2-1.3 Bilirubin, Direct 0.2 mg/dL 0-0.6 Bilirubin, Indirect 0.55 ml/dl 0.10-1.0 Lipid Profile([facility]) Male 08/17/2004 Cholesterol 189 mg/dL 120-200 Triglyceride 92 mg/dL 30-200 HDL Cholesterol ([facility]) Male 44 mg/dL 30-70 LDL, Calculated ([facility]) 127 CALC 0-129 LDL, Direct - mg/dL 0-130 VLDL 18 0-50 HDL Risk Factor ([facility]) 4.3 CALC 4.2-7.0 Liver Function ([facility]) 12/31/2003 Total Protein 7.3 g/dL 6.3-8.1 Albumin ([facility]) 4.3 3.8-5.5 A/G Ratio ([facility]) 1.4 0.6-2.2 Globulin 3.0 2.0-4.8 Alkaline Phosphatase (F/C/CTX) 70 U/L 30-110 Alt (SGPT) 22 10-40 Ast (Sgot) ([facility]) 26 U/mL 5-34 Bilirubin, Total 0.8 mg/dL 0.2-1.3 Bilirubin, Direct 0.2 mg/dL 0-0.6 Bilirubin, Indirect 0.58 ml/dl 0.10-1.0 Comp Metabolic ([facility]) 12/22/1999 Albumin 4.2 GM/DL 3.80 - 5.50 Alkaline Phosphatase 90 U/L 39-130 Bilirubin, Total 0.9 mg/dL 0.2-1.3 BUN 16 mg/dL 10-26 Calcium 8.9 mg/dL 7.4-9.2 Creatinine 1.1 mg/dL 0.6-1.4 Glucose 87 mg/dL 70 - 118 Ast Sgot 18 U/L 9-44 Alt (SGPT) 15 U/L 10-40 Total Protein 7.6 g/dL 6.3-8.1 Sodium 144 mEq/L 134-149 Potassium 5.2 mEq/L 3.6-5.5 Chloride 104 mEq/L 94-112 Co2 30 21-32 Globulin 3.4 2.0-4.8 Albumin / Globulin Ratio 1.2 0.6-2.2 BUN/Creatinin Ratio 14.5 8.0-36 Liver Function ([facility]) 12/22/1999 Albumin 4.2 GM/DL 3.80 - 5.50 Alkaline Phosphatase 90 U/L 39-130 Bilirubin, Direct 0.3 mg/dL 0-0.6 Bilirubin, Total 0.9 mg/dL 0.2-1.3 Ast (Sgot) 18 U/L 9-44 Alt (SGPT) 15 U/L 10-40 Total Protein 7.6 g/dL 6.3-8.1 Bilirubin, Indirect 0.60 ml/dl 0.10-1.0 Lipid Profile ([facility]) 12/22/1999 Cholesterol 218 mg/dL High 140-200 Triglyceride 95 mg/dL 30-150 HDL-Chol 36.3 mg/dL 30-70 VLDL 19 mg/dL 0-50 LDL-Calculated 163 High 0-160 1 1 sst 2 Negative: < 0.8 Indeterminate: 0.8 - 0.9 Positive: > 0.9 The CDC recommends that a positive HCV antibody result be followed up with a HCV Nucleic Acid Amplification test (839104). 3 Because ethnic data is not always readily available, this report includes an eGFR for both -Americans and non- Americans. The National Kidney Disease Education Program (NKDEP) does not endorse the use of the MDRD equation for patients that are not between the ages of 18 and 70, are , have extremes of body size, muscle mass, or nutritional status, or are non- or non-. According to the National Kidney Foundation, irrespective of diagnosis, the stage of the disease is based on the level of kidney function: Stage Description GFR(mL/min/1.73 m(2)) 1 Kidney damage with normal or decreased GFR 90 2 Kidney damage with mild decrease in GFR 60-89 3 Moderate decrease in GFR 30-59 4 Severe decrease in GFR 15-29 5 Kidney failure <15 (or dialysis) 4 SEE RESULT BELOW Name: BRITTANY LOBO JR : [address]: Araceli Youssef NP Acct: [id number] Unit: [id number] AGE: 60 Location: [facility] Re11/05/15 SEX: M Status: REG REF SPEC: [id number] JUAN JOSE: 11/05/[address]: Araceli Youssef NP REQ: [id number] RECD: 11/05/15 STATUS: COMP _ SOURCE: BLOOD,VENO SPDESC: ORDERED: Blood Cult Procedure Result Reported Site Aerobic Culture Bottle Final 11/10/15- 3 ML No Growth Day 5 Anaerobic Culture Bottle Final 11/10/15- 1353 ML No Growth Day 5 * ML - MAIN LAB ([facility]) . END OF REPORT * ML=Testing performed at Main Lab DEPARTMENT OF PATHOLOGY, [address] [place] [address] Jarrett Granados M.D. Director [facility] # [id number] 5 Because ethnic data is not always readily available, this report includes an eGFR for both -Americans and non- Americans. The National Kidney Disease Education Program (NKDEP) does not endorse the use of the MDRD equation for patients that are not between the ages of 18 and 70, are , have extremes of body size, muscle mass, or nutritional status, or are non- or non-. According to the National Kidney Foundation, irrespective of diagnosis, the stage of the disease is based on the level of kidney function: Stage Description GFR(mL/min/1.73 m(2)) 1 Kidney damage with normal or decreased GFR 90 2 Kidney damage with mild decrease in GFR 60-89 3 Moderate decrease in GFR 30-59 4 Severe decrease in GFR 15-29 5 Kidney failure <15 (or dialysis) 6 FASTING 7 Positive: 5 of the following Borrelia-specific bands: 18,23,28,30,39,41,45,58, 66, and 93. Negative: No bands or banding patterns which do not meet positive criteria. 8 Note: An equivocal or positive EIA result followed by a negative Western Blot result is considered NEGATIVE. An equivocal or positive EIA result followed by a positive Western Blot is considered POSITIVE by the CDC. . Positive: 2 of the following bands: 23,39 or 41 Negative: No bands or banding patterns which do not meet positive criteria. Criteria for positivity are those recommended by CDC/ASTPHLD. p23=Osp C, r77=qjtyibnia . Note: Sera from individuals with the following may cross react in the Lyme Western Blot assays: other spirochetal diseases (periodontal disease, leptospirosis, relapsing fever, yaws, and pinta); connective autoimmune (Rheumatoid Arthritis and Systemic Lupus Erythematosus and also individuals with Antinuclear Antibody); other infections (Ely Spotted Fever; Anahy-Barahona Virus, and Cytomegalovirus). . 9 Negative <0.91 Equivocal 0.91 - 1.09 Positive >1.09 10 No herpes simplex detected. 11 Normal pharyngeal leander 12 Negative <0.91 Equivocal 0.91 - 1.09 Positive >1.09 Note: The CDC currently advises that Western blot testing be performed following all equivocal or positive EIA results. Final diagnosis should include appropriate clinical findings and a positive EIA which is also positive by Western blot. 13 Negative <0.91 Equivocal 0.91 - 1.09 Positive >1.09 . Note: IgM levels may peak at 3-6 weeks post infection, then gradually decline. FDA currently advises that Western Blot testing be performed following all equivocal or positive EIA results. Final diagnosis should include appropriate clinical findings and a positive EIA which is also positive by Western Blot. 14 Negative <0.91 Equivocal 0.91 - 1.09 Positive >1.09 . Note: Negative indicates no antibodies detected to HSV-1. Equivocal may suggest early infection. If clinically appropriate, retest at later date. Positive indicates antibodies detected to HSV-1; coinfection with HSV-2 cannot be excluded without type specific testing. 15 Negative <0.91 Equivocal 0.91 - 1.09 Positive >1.09 . Note: Negative indicates no antibodies detected to HSV-2. Equivocal may suggest early infection. If clinically appropriate, retest at later date. Positive indicates antibodies detected to HSV-2; coinfection with HSV-1 cannot be excluded without type specific testing. 16 [employer] DEPARTMENT OF PATHOLOGY or Extension 3627 SURGICAL PATHOLOGY REPORT PATIENT: BRITTANY LOBO : 1955 AGE: 55 Y SEX: M ACCT: [id number] PROCEDURE DATE: 03/26/2010 DATE RECEIVED: 03/29/2010 REQUESTING PHYSICIAN: BRITTANY OCRREA MD LOCATION: [facility] Case No. [id number] FINAL DIAGNOSIS: SKIN, RIGHT LATERAL CALF, BIOPSY: PILOMATRIXOMA (CALCIFIED EPITHELIOMA OF MALHERBE). SK/clifford D/ GROSS DESCRIPTION: The specimen is received in formalin labeled Brittany Lobo, lab #[id number] consists of a 0.8 x 0.75 x 0.7cm off white hair bearing firm rubbery ragged segment of skin. The base contains an opened cyst with calcified friable material. It is bisected. TS/1 after a brief decalcification. AMP/gb D/T 03/29/10 CLINICAL DATA: [id number] NONE PROVIDED SPECIMEN SUBMITTED: LESION, RIGHT LATERAL CALF ADDITIONAL COPIES SENT TO: Electronically Signed by: Signed Date and Time: SERA WHITAKER MD 03/30/2010 15:10 PATHOLOGIST ____ Performed @ [facility], [address] [place] [address] 17 FASTING 18 Classification: Desirable . 19 CALCULATED LDL APPROXIMATES THE VALUE OF A DIRECT LDL MEASUREMENT. Classification: Borderline High . 20 RESULT VERIFIED BY REPEAT ANALYSIS Procedures Date CPT Code Description Status 05/09/2016 45147 Electrocardiogram Complete Completed 10/22/2013 Colonoscopy Completed 04/25/2012 77419 CPHL SHQ Completed 11/01/2011 73878 Pulse Oximetry Completed 04/25/2011 30478 Destruction Of Flat Warts Or Molluscum Contagiosum, Completed Milia To 15 03/26/2010 26487 Excise Benign Lesion .6-1CM Completed Scalp/Neck/Hands/Feet/Genitalia 03/26/2010 74514 Excise Benign Lesion .6-1CM Trunk/Arm/Leg Completed 03/30/2009 04103 Electrocardiogram Complete Completed 10/03/2008 Colonoscopy Completed 07/27/2007 97068 CPHL SHQ Completed 01/17/2007 38822 Electrocardiogram Complete Completed Encounters Type Date Location Provider CPT E/M Dx Office Visit 05/23/2017 9:20a [facility] Brittany Correa, 62605 S23.41xA Tatyana W01.198A Y93.67 Office Visit 01/17/2017 2:10p [facility] Brittany Correa M.D. 43783 G50.1 M79.662 Office Visit 10/10/2016 6:40p [facility] Maryann Downey M.D. 83775 J18.8 Office Visit 05/09/2016 10:20a [facility] Brittany Correa M.D. 98779 Z00.00 E78.4 Z12.5 Z11.59 Office Visit 03/01/2016 9:45a [facility] Office Darlyn Levy 92682 J02.9 Office Visit 11/05/2015 11:30a [facility] ETTA Cole 63928 R22.1 Office Visit 10/21/2014 3:00p [facility] Brittany Correa M.D. 38118 726.90 Office Visit 06/16/2014 6:30p [facility] Office ETTA Cole 60281 462 Office Visit 11/18/2013 1:20p [facility] Office Brittany Correa M.D. 45850 V70.0 Office Visit 08/14/2013 12:20p [facility] Office Brittany Correa M.D. 83778 719.43 727.42 E888.9 Office Visit 03/11/2013 7:00p Main Office Meena HymanKAYE 95450 782.9 v04.81 Office Visit 09/13/2012 1:10p [facility] Mesfin Daniel M.D. 85934 728.71 785.1 Office Visit 04/25/2012 10:20a [facility] Office Brittany Correa M.D. 05259 272.0 V70.0 600.00 Office Visit 03/26/2012 1:00p Main Office Darlyn Verma 47567 462 Office Visit 02/07/2012 5:00p Main Office Darlyn Levy 97817 709.9 v04.81 Office Visit 11/01/2011 2:00p [facility] Darlyn Verma 44222 461.9 Office Visit 09/28/2011 11:20a [facility] Office Brittany Correa M.D. 13107 078.10 Office Visit 04/25/2011 3:20p Main Office Brittany Correa M.D. 94036 v04.81 380.89 078.10 782.1 773.1 Office Visit 11/18/2010 2:30p [facility] Maryann Downey M.D. 60173 784.2 Office Visit 11/11/2010 11:30a [facility] Maryann Downey M.D. 74372 784.2 Office Visit 06/11/2010 9:00a [facility] La LaroseDarlyn 55140 462 Office Visit 06/01/2010 3:20p [facility] Brittany Correa M.D. 25042 V70.0 Office Visit 03/19/2010 2:10p [facility] Office Brittany Correa M.D. 82601 782.1 Office Visit 07/28/2009 2:40p [facility] Brittany Correa M.D. 17522 784.2 Office Visit 06/12/2009 11:00a Main Office Brittany Correa M.D. 52930 466.0 Office Visit 03/30/2009 10:20a [facility] Office Brittany Correa M.D. 20813 V70.0 600.00 Office Visit 12/17/2008 3:40p [facility] Thomas Wasserman M.D. 18972 E906.4 913.4 Office Visit 12/10/2008 8:00p Main Office Karen AlvarezDarlyn 62565 788.1 Office Visit 09/10/2008 8:00p [facility] Office Brittany Correa M.D. 17369 461.9 Office Visit 05/27/2008 9:20a [facility] Brittany Correa M.D. 52544 272.0 600.00 Office Visit 05/03/2008 9:30a Main Office Mesfin Daniel M.D. 08676 461.9 462 465.9 V04.81 Office Visit 03/21/2007 3:20p [facility] Tanner Esquivel M.D. 78332 474.00 Office Visit 03/17/2007 10:00a Main Office Darlyn Levy 49887 462 V04.81 V06.5 Office Visit 01/17/2007 10:20a Main Office Brittany Correa M.D. 94449 272.0 493.90 V70.0 V76.44 Office Visit 05/27/2006 11:45a Main Office Araceli Youssef [facility] 05999 127.4 Office Visit 09/06/2005 1:00p [facility] Brittany Correa M.D. 80569 272.0 Office Visit 12/31/2003 2:00p Main Office Brittany Correa M.D. 12687 272.0 Office Visit 03/08/2003 11:10a Main Office Haider Clifford M.D. 96231 214.9 V16.0 Office Visit 05/30/2002 1:00p Main Office Tanner Esquivel M.D. 32405 724.5 216.9 Plan of Care 10/05/2017 - Shirin Francois, NPR10.30 Lower abdominal pain, unspecifiedComments:Please follow up in the emergency department tonight as we discussed.
[2017-10-05 22:35] LABS: ABS Basophils 0.1 10^3/ul (0-0.2); ABS Eosinophils 0.1 10^3/ul (0-0.6); ABS Lymphocytes 1.9 10^3/ul (1.0-4.8); ABS Nucleated RBC 0 10^3/ul; Eosinophil % 0.7 % (0-6); Hematocrit 45 % (42-52); Hemoglobin 15.4 g/dl (14.0-18.0); Lymphocyte % 14.7 % (25-47); Mean Corpuscular HGB Conc 34 g/dl (31-36); Mean Corpuscular Hemoglobin 30 pg (27-31); Mean Corpuscular Volume 89 fL (80-94); Nucleated Red Blood Cells % 0.1; Platelet Count 249 10^3/ul (150-450); Red Blood Count 5.06 10^6/ul (4.0-5.4); Red Cell Distribution Width 14 % (10.5-15); White Blood Count 13.1 10^3/ul (3.5-10.8)
[2017-10-05 22:41] LABS: INR 0.96 (0.77-1.02)
[2017-10-05 22:54] LABS: EGFR Non-African American 73.7 (>60)
[2017-10-05] MEDS ORDERED: NS 0.9% 1000 ML* 1,000 ML IV ONE (23:57)
--- NOTE | 2017-10-06 00:01 | ED ---
Abdominal Pain/Male - HPI Summary HPI Summary: Patient sent from urgent care for further evaluation of right lower quadrant pain starting this morning at 8 AM, and fever up to 101.7. Pain described as constant, dull, rated 3 out of 10 currently, worse with movement. Denies cough , sore throat, CP, SOB, N/V/D, change in urine or BM. Medical history is asthma. Abdominal/pelvic surgical history includes hernia repair in 1979. - History of Current Complaint Chief Complaint: EDAbdPain Stated Complaint: FEVER/ABD PAIN Time Seen by Provider: 10/05/17 23:49 Hx Obtained From: Patient Onset/Duration: Sudden Onset Timing: Constant Severity Initially: Mild Severity Currently: Mild Pain Intensity: 3 Pain Scale Used: 0-10 Numeric Location: Discrete At: RLQ Radiates: No Character: Dull Aggravating Factor(s): Movement Alleviating Factor(s): Position Associated Signs And Symptoms: Positive: Decreased Appetite - Allergies/Home Medications Allergies/Adverse Reactions: Allergies Allergy/AdvReac Type Severity Reaction Status Date / Time MS Penicillins [Penicillins] Allergy Unknown Verified 10/05/17 20:22 Reaction Details PEANUTS Allergy Mild DIGESTIVE Uncoded 10/05/17 20:22 PROBLEM ENVIRONMENTAL Allergy ASTHMA Uncoded 10/05/17 20:22 SYMPTOMS PMH/Surg Hx/FS Hx/Imm Hx Cardiovascular History: Reports: Other Cardiovascular Problems/Disorders - CHOLESTEROL CONTROL WITH MEDS Respiratory History: Reports: Hx Asthma - PRN INHALER, ALLERGY INDUCED Sensory History: Reports: Hx Cataracts - AGE RELATED, DEVELOPING, Hx Contacts or Glasses - GLASSES, DOES NOT WEAR CONTACTS MUCH Denies: Hx Hearing Aid Opthamlomology History: Reports: Hx Cataracts - AGE RELATED, DEVELOPING, Hx Contacts or Glasses - GLASSES, DOES NOT WEAR CONTACTS MUCH Neurological History: Reports: Hx Migraine - HX OF WITH [facility]UAL [facility], VERY RARE NOW - Surgical History Surgery Procedure, Year, and Place: TONSILLECTOMY AGE 5. 1979'S RIGHT HERNIA REPAIR, [place], [place]. 1969'S IMPACTED WISDOM TEETH SURGERY, [place], [place], right wrist cyst Hx Anesthesia Reactions: No Infectious Disease History: Yes Infectious Disease History: Denies: Traveled Outside the [place] in Last 30 Days - Social History Alcohol Use: Rare Substance Use Type: Reports: None Smoking Status (MU): Never Smoked Tobacco Review of Systems Positive: Fever Eyes: Negative ENT: Negative Cardiovascular: Negative Respiratory: Negative Positive: Abdominal Pain Genitourinary: Negative Musculoskeletal: Negative Skin: Negative Neurological: Negative Psychological: Normal All Other Systems Reviewed And Are Negative: Yes Physical Exam Triage Information Reviewed: Yes Vital Signs On Initial Exam: Initial Vitals Temp Pulse Resp BP Pulse Ox 99.7 F 102 16 149/98 96 10/05/17 20:15 10/05/17 20:15 10/05/17 20:15 10/05/17 20:15 10/05/17 20:15 Vital Signs Reviewed: Yes Appearance: Positive: Well-Appearing Skin: Positive: Warm Head/Face: Positive: Normal Head/Face Inspection Eyes: Positive: Normal ENT: Positive: Normal ENT inspection Neck: Positive: Supple Respiratory/Lung Sounds: Positive: Clear to Auscultation Cardiovascular: Positive: Normal Abdomen Description: Positive: Soft, [place] Tenderness. Negative: Distended, Guarding Musculoskeletal: Positive: Normal Neurological: Positive: Normal Psychiatric: Positive: Normal AVPU Assessment: Alert - Thomas Coma Scale Best Eye Response: 4 - Spontaneous Best Motor Response: 6 - Obeys Commands Best Verbal Response: 5 - Oriented Coma Scale Total: 15 Diagnostics - Vital Signs Vital Signs Temp Pulse Resp BP Pulse Ox 10/05/17 22:00 99.0 F 90 16 145/88 97 10/05/17 20:15 99.7 F 102 16 149/98 96 - Laboratory Lab Results: Lab Results 10/05/17 10/05/17 10/05/17 Range/Units 22:23 22:23 22:23 WBC 13.1 H (3.5-10.8) 10^3/ul RBC 5.06 (4.0-5.4) 10^6/ul Hgb 15.4 (14.0-18.0) g/dl Hct 45 (42-52) % MCV 89 (80-94) fL MCH 30 (27-31) pg MCHC 34 (31-36) g/dl RDW 14 (10.5-15) % Plt Count 249 (150-450) 10^3/ul MPV 8.0 (7.4-10.4) um3 Neut % (Auto) 76.3 (38-83) % Lymph % (Auto) 14.7 L (25-47) % Crane % (Auto) 7.8 H (0-7) % Eos % (Auto) 0.7 (0-6) % Baso % (Auto) 0.5 (0-2) % Absolute Neuts (auto) 10.0 H (1.5-7.7) 10^3/ul Absolute Lymphs (auto) 1.9 (1.0-4.8) 10^3/ul Absolute Monos (auto) 1.0 H (0-0.8) 10^3/ul Absolute Eos (auto) 0.1 (0-0.6) 10^3/ul Absolute Basos (auto) 0.1 (0-0.2) 10^3/ul Absolute Nucleated RBC 0 10^3/ul Nucleated RBC % 0.1 INR (Anticoag Therapy) (0.77-1.02) Sodium 138 L (139-145) mmol/L Potassium 3.9 (3.5-5.0) mmol/L Chloride 103 (101-111) mmol/L Carbon Dioxide 26 (22-32) mmol/L Anion Gap 9 (2-11) mmol/L BUN 14 (6-24) mg/dL Creatinine 1.03 (0.67-1.17) mg/dL Est GFR ( Amer) 94.7 (>60) Est GFR (Non-Af Amer) 73.7 (>60) BUN/Creatinine Ratio 13.6 (8-20) Glucose 105 H (70-100) mg/dL Lactic Acid 0.8 (0.5-2.0) mmol/L Calcium 9.2 (8.6-10.3) mg/dL Total Bilirubin 1.00 (0.2-1.0) mg/dL AST 18 (13-39) U/L ALT 15 (7-52) U/L Alkaline Phosphatase 64 (34-104) U/L Troponin I 0.01 (<0.04) ng/mL C-Reactive Protein 77.97 H (< 5.00) mg/L Total Protein 7.4 (6.4-8.9) g/dL Albumin 4.2 (3.2-5.2) g/dL Globulin 3.2 (2-4) g/dL Albumin/Globulin Ratio 1.3 (1-3) Lipase 21 (11.0-82.0) U/L //18 Range/Units 22:23 WBC (3.5-10.8) 10^3/ul RBC (4.0-5.4) 10^6/ul Hgb (14.0-18.0) g/dl Hct (42-52) % MCV (80-94) fL MCH (27-31) pg MCHC (31-36) g/dl RDW (10.5-15) % Plt Count (150-450) 10^3/ul MPV (7.4-10.4) um3 Neut % (Auto) (38-83) % Lymph % (Auto) (25-47) % Crane % (Auto) (0-7) % Eos % (Auto) (0-6) % Baso % (Auto) (0-2) % Absolute Neuts (auto) (1.5-7.7) 10^3/ul Absolute Lymphs (auto) (1.0-4.8) 10^3/ul Absolute Monos (auto) (0-0.8) 10^3/ul Absolute Eos (auto) (0-0.6) 10^3/ul Absolute Basos (auto) (0-0.2) 10^3/ul Absolute Nucleated RBC 10^3/ul Nucleated RBC % INR (Anticoag Therapy) 0.96 (0.77-1.02) Sodium (139-145) mmol/L Potassium (3.5-5.0) mmol/L Chloride (101-111) mmol/L Carbon Dioxide (22-32) mmol/L Anion Gap (2-11) mmol/L BUN (6-24) mg/dL Creatinine (0.67-1.17) mg/dL Est GFR ( Amer) (>60) Est GFR (Non-Af Amer) (>60) BUN/Creatinine Ratio (8-20) Glucose (70-100) mg/dL Lactic Acid (0.5-2.0) mmol/L Calcium (8.6-10.3) mg/dL Total Bilirubin (0.2-1.0) mg/dL AST (13-39) U/L ALT (7-52) U/L Alkaline Phosphatase (34-104) U/L Troponin I (<0.04) ng/mL C-Reactive Protein (< 5.00) mg/L Total Protein (6.4-8.9) g/dL Albumin (3.2-5.2) g/dL Globulin (2-4) g/dL Albumin/Globulin Ratio (1-3) Lipase (11.0-82.0) U/L Result Diagrams: 10/05/17 22:23 10/05/17 22:23 Lab Statement: Any lab studies that have been ordered have been reviewed, and results considered in the medical decision making process. - CT ab/pel CT Interpretation: Positive (See Comments) - Acute diverticulitis CT Interpretation Completed By: Radiologist Re-Evaluation - Re-Evaluation 1 Re-Evaluation Time: 00:01 - patient refuses pain medication 2 Re-Evaluation Time: 03:20 Change: Unchanged Comment: Has no pain currently Abdominal Pain Fem Course/Dx - Course Course Of Treatment: Complains of right lower quadrant pain. Vital signs unremarkable. Elevated white count and CRP but patient nontoxic appearing. Patient states he is in minimal pain and then only with movement. Imaging indicates diverticulitis. Will discharge patient home with Cipro and Flagyl. - Diagnoses Provider Diagnoses: Diverticulitis Discharge - Sign-Out/Discharge Documenting (check all that apply): Discharge/Admit/Transfer - Discharge Plan Condition: Stable Disposition: HOME Patient Education Materials: Diverticulitis (ED) Referrals: Harry Correa MD [Primary Care Provider] - Additional Instructions: Follow-up with primary care. Return to the ED for any new or worsening symptoms - Billing Disposition and Condition Condition: STABLE Disposition: HOME
[2017-10-06] MEDS ORDERED: Iohexol 300* (CONTRAST) 10 ML SDV IV ONE (00:53)
[2017-10-06] MEDS ORDERED: Ciprofloxacin TAB* 250 MG PO ONE (03:23)
[2017-10-06] MEDS ORDERED: metroNIDAZOLE TAB* 250 MG PO ONE (03:23)
[2017-10-06 03:58] VITALS: BP 135/88
--- NOTE | 2017-10-06 07:51 | RAD ---
Indication: Right lower quadrant pain. Contrast: Administered 100.0 ml of OMNIPAQUE 300 mg/ml CT of the abdomen and pelvis was performed after IV contrast administration. No oral contrast was administered. Coronal and sagittal reconstructed images were obtained. Lung bases demonstrate no pleural fluid, nodules or masses heart is of normal size without evidence of pericardial effusion. The liver is normal in size. There is a low density lesion in the anterior segment of the right lobe of liver measuring up to 16 mm. Medial segment of left lobe liver there is a cyst measuring 14 mm. In the caudate lobe cyst measuring 9 mm is noted. In the dome of the right lobe there is a lobulated lesion measuring 7 mm may represent hemangioma. No intrahepatic ductal dilatation is noted. The spleen is normal in size. The pancreas demonstrates no mass or pancreatic duct dilatation. The gallbladder demonstrates no calcified gallstones. No pericholecystic fluid or wall thickening is noted. No adrenal masses are noted. The kidneys demonstrate symmetric nephrograms without evidence of hydronephrosis. Parapelvic cysts are noted in the right kidney. Cortical cyst is noted in the upper pole of the right kidney. Right cortical cyst measures up to 4.8 cm. No retroperitoneal lymphadenopathy is noted. No dilated loops of bowel are noted. CT of the pelvis demonstrates no definite evidence of appendicitis. There is wall thickening at the sigmoid colon with pericolonic infiltration of fat consistent with diverticulitis. No evidence of peridiverticular abscess is noted. Urinary bladder is unremarkable. No dilated loops of bowel are noted. The prostate is unremarkable. IMPRESSION: No definite appendicitis is identified. There is diverticulitis of the sigmoid colon without evidence of peridiverticular abscess. Multiple hepatic cysts are noted.
== END 2017-10-06 04:02 | disposition home or self-care (01) ==
LOC: ED 20:14
DX: K57.92 Diverticulitis of intestine, part unspecified, without perforation or abscess without bleeding (principal); R10.31 Right lower quadrant pain; R50.9 Fever, unspecified
CPT/HCPCS: 36415; 74177; 80053; 83605; 83690; 84484; 85025; 85610; 86140; 87040; 93005; 96360; 99284; A9270-GY; Q9967

== ENCOUNTER 2018-06-17 09:09 | Emergency (ER) | payer OTHER ==
[2018-06-17 11:21] VITALS: BP 138/86
--- NOTE | 2018-06-18 05:50 | ED ---
Skin Complaint - HPI Summary HPI Summary: Patient is a 63-year-old male presenting to the ED with acute onset of a red streak to the medial upper thigh measuring approximately 5 cm in length and 1 cm in width which is erythematous, slightly painful to palpation with an obvious palpable cord. He states he awoke with this this morning. He takes a baby aspirin daily, no history of DVT or PE. Denies any SOB. He was seen at urgent care and sent over to rule out a DVT. He states he feels otherwise well and is otherwise asymptomatic. He has not used, heat, ice or any over-the- counter medications otherwise. - History of Current Complaint Chief Complaint: EDExtremityLower Time Seen by Provider: 06/17/18 09:25 Stated Complaint: RT LEG SWELLING Hx Obtained From: Patient Onset/Duration: Started Hours Ago Skin Exposure Onset/Duration: Hours Ago Timing: Constant Onset Severity: Mild Current Severity: None Pain Intensity: 3 Pain Scale Used: 0-10 Numeric Skin Location: Discrete - Right medial upper thigh Character: Swelling, Redness, Raised Aggravating Symptom(s): Nothing Alleviating Symptom(s): Nothing Associated Signs & Symptoms: Negative - Allergy/Home Medications Allergies/Adverse Reactions: Allergies Allergy/AdvReac Type Severity Reaction Status Date / Time Penicillins Allergy Unknown Verified 06/17/18 08:02 Reaction Details PEANUTS Allergy Mild DIGESTIVE Uncoded 10/05/17 20:22 PROBLEM ENVIRONMENTAL Allergy ASTHMA Uncoded 10/05/17 20:22 SYMPTOMS PMH/Surg Hx/FS Hx/Imm Hx Previously Healthy: Yes Endocrine/Hematology History: Denies: Hx Diabetes Cardiovascular History: Reports: Other Cardiovascular Problems/Disorders - CHOLESTEROL CONTROL WITH MEDS Denies: Hx Hypertension Respiratory History: Reports: Hx Asthma - PRN INHALER, ALLERGY INDUCED History: Denies: Hx Renal Disease Sensory History: Reports: Hx Cataracts - AGE RELATED, DEVELOPING, Hx Contacts or Glasses - GLASSES, DOES NOT WEAR CONTACTS MUCH Denies: Hx Hearing Aid Opthamlomology History: Reports: Hx Cataracts - AGE RELATED, DEVELOPING, Hx Contacts or Glasses - GLASSES, DOES NOT WEAR CONTACTS MUCH Neurological History: Reports: Hx Migraine - HX OF WITH [facility], VERY RARE NOW - Surgical History Surgery Procedure, Year, and Place: TONSILLECTOMY AGE 5. 1979' RIGHT HERNIA REPAIR, [place], [place]. 1969'S IMPACTED WISDOM TEETH SURGERY, [place], [place], right wrist cyst Hx Anesthesia Reactions: No - Immunization History Date of Tetanus Vaccine: utd Date of Influenza Vaccine: fall 2016 Infectious Disease History: No Infectious Disease History: Denies: Traveled Outside the [place] in Last 30 Days - Social History Occupation: Employed Full-time Lives: With Family Alcohol Use: None Hx Substance Use: No Substance Use Type: Reports: None Smoking Status (MU): Never Smoked Tobacco Review of Systems Constitutional: Negative Negative: Fever, Chills, Fatigue, Skin Diaphoresis Negative: Palpitations, Chest Pain Negative: Shortness Of Breath, Cough Genitourinary: Negative Positive: no symptoms reported, see HPI Negative: Arthralgia, Myalgia Positive: Other - 5 x 1 cm erythematous slightly painful palpable cord to the right medial thigh Neurological: Negative All Other Systems Reviewed And Are Negative: Yes Physical Exam Triage Information Reviewed: Yes Vital Signs On Initial Exam: Initial Vitals Temp Pulse Resp BP Pulse Ox 98.5 F 72 18 157/91 99 06/17/18 09:12 06/17/18 09:12 06/17/18 09:12 06/17/18 09:12 06/17/18 09:12 Vital Signs Reviewed: Yes Appearance: Positive: Well-Appearing, Well-Nourished Skin: Positive: Warm, Skin Color Reflects Adequate Perfusion Head/Face: Positive: Normal Head/Face Inspection Eyes: Positive: EOMI, NICO, Conjunctiva Clear Neck: Positive: Supple, No Lymphadenopathy Respiratory/Lung Sounds: Positive: Clear to Auscultation, Breath Sounds Present Cardiovascular: Positive: RRR, Pulses are Symmetrical in both Upper and Lower Extremities Musculoskeletal: Positive: Normal, Strength/ROM Intact Neurological: Positive: Speech Normal Psychiatric: Positive: Normal, Affect/Mood Appropriate AVPU Assessment: Alert Diagnostics - Vital Signs Vital Signs Temp Pulse Resp BP Pulse Ox 06/17/18 11:20 97.5 F 49 14 138/86 97 06/17/18 09:12 98.5 F 72 18 157/91 99 - Laboratory Lab Statement: Any lab studies that have been ordered have been reviewed, and results considered in the medical decision making process. Course/Dx - Course Course Of Treatment: On physical examination there is a 5cm x 1 cm erythematous slightly painful palpable cord to the right medial inner thigh. This appears to be a superficial venous thrombosis. However, ultrasound obtained to rule out a DVT. There is no evidence of DVT on ultrasound. There appears to be a greater saphenous vein thrombosis in the mid thigh. Patient is encouraged to continue aspirin, however to place cold and heat packs to the area. The area does not appear to be infected so antibiotics are not prescribed. - Diagnoses Provider Diagnoses: Acute superficial venous thrombosis of right lower extremity Discharge - Sign-Out/Discharge Documenting (check all that apply): Patient Departure - Discharge Plan Condition: Stable Disposition: HOME Patient Education Materials: Superficial Thrombophlebitis (ED) Referrals: Harry Correa MD [Primary Care Provider] - Additional Instructions: Ibuprofen 600mg three times daily OR Tylenol 650mg three times daily Cold compresses mixed with warm compresses Elevate the extremity when possible - Billing Disposition and Condition Condition: STABLE Disposition: Home
== END 2018-06-17 11:20 | disposition home or self-care (01) ==
LOC: ED 09:09
DX: I82.811 Embolism and thrombosis of superficial veins of right lower extremity (principal); E78.5 Hyperlipidemia, unspecified; J45.909 Unspecified asthma, uncomplicated; Z88.0 Allergy status to penicillin; Z91.010 Allergy to peanuts
CPT/HCPCS: 99282